=== PATIENT | female | born 1935 | race Caucasian/White ===

== ENCOUNTER 2018-01-28 12:15 | Inpatient (IN) | payer OTHER, MEDICAID ==
[2018-01-28 12:43] LABS: ADD MAN DIFF? NO
[2018-01-28] MEDS: ONDANSETRON 4 MG INJ IV (12:46)
[2018-01-28] MEDS: BELLADONNA/PHENOBARBITAL TAB PO (12:46)
[2018-01-28] MEDS: KETOROLAC 15 MG INJ IV (12:47)
[2018-01-28] MEDS: LIDOCAINE/MYLANTA 40 ML BTL PO (12:47)
[2018-01-28] MEDS: SOD CHLORIDE 0.9% 1,000 ML IV (12:48)
[2018-01-28 12:54] LABS: WHITE BLOOD COUNT 10.4 10^3/ul (4.8-10.8)
[2018-01-28 12:54] LABS: ABNORMAL IP MESSAGE 1; BASOPHILS % 0.3 % (0.0-2.0); EOSINOPHILS % 0.4 % (0.0-7.0); HEMATOCRIT 42.6 % (37.0-47.0); HEMOGLOBIN 14.8 g/dl (12.0-16.0); LYMPHOCYTES # 0.3 10^3/ul (0.8-2.9); LYMPHOCYTES % 3.2 % (15.0-51.0); MEAN CORPUSCULAR HEMOGLOBIN 31.5 pg (29.0-33.0); MEAN CORPUSCULAR HGB CONC 34.7 g/dl (32.0-37.0); MEAN CORPUSCULAR VOLUME 90.6 fl (82.0-101.0); MEAN PLATELET VOLUME 11.1 fl (7.4-10.4); MONOCYTE # 0.6 10^3/ul (0.3-0.9); MONOCYTES % 5.5 % (0.0-11.0); NEUTROPHIL # 9.4 10^3/ul (1.6-7.5); NEUTROPHILS % 90.4 % (39.0-77.0); PLATELET COUNT 216 10^3/UL (140-415); RED CELL DISTRIBUTION WIDTH 12.3 % (11.5-14.5)
[2018-01-28 12:55] LABS: POSITIVE DIFF @See below
[2018-01-28 13:13] LABS: ALANINE AMINOTRANSFERASE 40 IU/L (13-69); ALBUMIN/GLOBULIN RATIO 1.51; ALKALINE PHOSPHATASE 74 IU/L (42-121); ANION GAP 25 (8-16); ASPARTATE AMINO TRANSFERASE 38 IU/L (15-46); BILIRUBIN,INDIRECT 0.9 mg/dl (0-1.1); BILIRUBIN,TOTAL 0.9 mg/dl (0.2-1.3); BLOOD UREA NITROGEN 32 mg/dl (7-20); CALCIUM 10.1 mg/dl (8.4-10.2); CARBON DIOXIDE 22 mmol/L (21-31); CHLORIDE 93 mmol/L (97-110); CREATININE 2.18 mg/dl (0.44-1.00); GLUCOSE 259 mg/dl (70-220); LIPASE 103 U/L (23-300); POTASSIUM 4.3 mmol/L (3.5-5.1); SODIUM 136 mmol/L (135-144); TOTAL PROTEIN 8.3 g/dl (6.1-8.1)
[2018-01-28 13:24] LABS: TROPONIN-I < 0.010 ng/ml (0.000-0.120)
[2018-01-28] MEDS ORDERED: LORAZEPAM 2 MG INJ IV (15:30)
[2018-01-28] MEDS ORDERED: hydrALAzine 20 MG INJ IV (15:30)
[2018-01-28] MEDS ORDERED: DOCUSATE SODIUM 100 MG CAP PO (15:30)
[2018-01-28] MEDS ORDERED: MAGNESIUM HYDROXIDE 30ML CUP PO (15:30)
[2018-01-28] MEDS ORDERED: NA PHOSPHATE/BIPHOS 133 ML ENEMA PR (15:30)
[2018-01-28] MEDS ORDERED: ALBUTEROL/IPRATROPIUM (NEB) 3 ML AMP HHN (15:30)
[2018-01-28] MEDS ORDERED: NITROGLYCERIN (SL) 0.4 MG TAB SL (15:30)
[2018-01-28] MEDS ORDERED: ACETAMINOPHEN 325 MG TAB PO (15:30)
[2018-01-28] MEDS ORDERED: NACL 0.9% 3 ML SYG IV (15:30)
[2018-01-28 15:46] LABS: INR 1.01; PROTIME 13.4 Sec (11.9-14.9)
[2018-01-28 15:47] LABS: PARTIAL THROMBOPLASTIN TIME 25.1 Sec (25.0-35.0)
[2018-01-28 16:06] LABS: FREE T4 (FREE THYROXINE) 1.36 ng/dl (0.85-1.93)
[2018-01-28 16:15] LABS: LACTIC ACID 1.2 mmol/L (0.5-2.0)
[2018-01-28] MEDS: PIPER-TAZO 3.375 GM IV (PMX) 100 ML IVPB (16:36)
[2018-01-28] MEDS ORDERED: GLUCOSE GEL 15 GRAM TUBE BUCCAL (17:00)
[2018-01-28] MEDS ORDERED: DEXTROSE 50% 50 ML SYRINGE IV ×2 (17:00)
[2018-01-28] MEDS ORDERED: GLUCAGON 1 MG INJ IM (17:00)
[2018-01-28] MEDS ORDERED: GLUCOSE GEL 15 GRAM TUBE PO ×2 (17:00)
[2018-01-28] MEDS: HYDROCODONE/APAP (5/325) TAB PO (19:27)
[2018-01-28] MEDS: INSULIN ASPART [NOVOLOG] 3 ML PEN SC (20:41)
[2018-01-28] MEDS: SOD CHLORIDE 0.45% 1,000 ML IV (20:41)
[2018-01-28] MEDS: HEPARIN 5,000 UNIT/0.5 ML VIAL SC (21:00)
[2018-01-29 00:18] LABS: ADD UMIC YES; UR ASCORBIC ACID NEGATIVE (NEGATIVE); UR BILIRUBIN (Dip) NEGATIVE (NEGATIVE); UR BLOOD (Dip) NEGATIVE (NEGATIVE); UR CLARITY SLIGHTLY CLOUDY (CLEAR); UR COLOR YELLOW (YELLOW); UR GLUCOSE (Dip) 3+ mg/dL (NEGATIVE); UR KETONES (Dip) NEGATIVE (NEGATIVE); UR LEUKOCYTE ESTERASE (Dip) 1+ Leu/ul (NEGATIVE); UR NITRITE (Dip) NEGATIVE (NEGATIVE); UR RBC 2 /HPF (0-5); UR SPECIFIC GRAVITY (Dip) 1.027 (1.003-1.030); UR SQUAMOUS EPITHELIAL CELL FEW /HPF (FEW); UR TOTAL PROTEIN (Dip) NEGATIVE (NEGATIVE); UR UROBILINOGEN (Dip) NEGATIVE (NEGATIVE); UR WBC 1 /HPF (0-5)
[2018-01-29] MEDS: INSULIN ASPART [NOVOLOG] 3 ML PEN SC ×6 (00:28→20:45)
[2018-01-29] MEDS: SOD CHLORIDE 0.45% 1,000 ML IV ×4 (01:30→20:52)
[2018-01-29] MEDS: ACCU-CHEK XX (02:00)
[2018-01-29 02:31] LABS: SODIUM,URINE RANDOM < 13 mmol/L (30-90)
[2018-01-29] MEDS: PANTOPRAZOLE 40 MG INJ IV (06:01)
[2018-01-29 06:02] LABS: HEMATOCRIT 33.9 % (37.0-47.0); HEMOGLOBIN 11.7 g/dl (12.0-16.0); MEAN CORPUSCULAR HEMOGLOBIN 31.7 pg (29.0-33.0); MEAN CORPUSCULAR HGB CONC 34.5 g/dl (32.0-37.0); MEAN CORPUSCULAR VOLUME 91.9 fl (82.0-101.0); MEAN PLATELET VOLUME 11.3 fl (7.4-10.4); PLATELET COUNT 177 10^3/UL (140-415); RED BLOOD COUNT 3.69 10^6/ul (4.20-5.40); RED CELL DISTRIBUTION WIDTH 12.8 % (11.5-14.5)
[2018-01-29 06:02] LABS: WHITE BLOOD COUNT 4.9 10^3/ul (4.8-10.8)
[2018-01-29 06:26] LABS: ANION GAP 14 (8-16); BLOOD UREA NITROGEN 35 mg/dl (7-20); CALCIUM 8.9 mg/dl (8.4-10.2); CARBON DIOXIDE 29 mmol/L (21-31); CHLORIDE 96 mmol/L (97-110); CREATININE 1.55 mg/dl (0.44-1.00); GLUCOSE 110 mg/dl (70-220); MAGNESIUM 2.1 mg/dl (1.7-2.5); PHOSPHORUS 4.2 mg/dl (2.5-4.9); POTASSIUM 4.1 mmol/L (3.5-5.1); SODIUM 135 mmol/L (135-144)
[2018-01-29 06:28] LABS: CHOL/HDL RATIO 1.9 RATIO; HDL CHOLESTEROL 47 mg/dl (33-92); LDL CHOLESTEROL,CALCULATED 2 mg/dl; TRIGLYCERIDES 204 mg/dl (0-149)
[2018-01-29 06:28] LABS: CHOLESTEROL 90 mg/dl (100-200)
[2018-01-29 06:40] LABS: ADD MAN DIFF? YES; POSITIVE DIFF @See below
[2018-01-29 07:53] LABS: HEMOGLOBIN A1C 8.2 % (0-5.9)
[2018-01-29] MEDS: IOHEXOL 300MG/ML 150 ML BTL (08:13)
[2018-01-29 09:03] LABS: BAND NEUTROPHILS #M 1.7 10^3/ul (0.0-0.6); BAND NEUTROPHILS % (M) 35 % (0-4); EOSINOPHILS % (M) 2 % (0-7); GIANT THROMBO% (M) 1 % (0-0); LYMPHOCYTES #M 0.9 10^3/ul (0.8-2.9); LYMPHOCYTES % (M) 20 % (15-51); MONOCYTE #M 0.2 10^3/ul (0.3-0.9); MONOCYTES % (M) 6 % (0-11); PLATELET ESTIMATE NORMAL; PROMYELOCYTES % (M) 1 % (0-0); SEG NEUT #M 1.8 10^3/ul (1.6-7.5); SEGMENTED NEUTROPHILS (M) % 36 % (39-77); SMUDGE%M 16 % (0-0); SPHEROCYTES 1+ (0-0)
[2018-01-29] MEDS: morphine 2 MG INJ IV (10:52)
[2018-01-29] MEDS: HEPARIN 5,000 UNIT/0.5 ML VIAL SC ×2 (10:53→20:46)
[2018-01-29] MEDS: ONDANSETRON 4 MG INJ IV (23:55)
[2018-01-30] MEDS: INSULIN ASPART [NOVOLOG] 3 ML PEN SC ×6 (01:09→21:00)
[2018-01-30] MEDS: ACCU-CHEK XX (02:00)
[2018-01-30 05:57] LABS: ADD MAN DIFF? NO
[2018-01-30 06:05] LABS: ABNORMAL IP MESSAGE 1; BASOPHILS % 0.4 % (0.0-2.0); HEMATOCRIT 34.4 % (37.0-47.0); HEMOGLOBIN 11.8 g/dl (12.0-16.0); LYMPHOCYTES # 0.4 10^3/ul (0.8-2.9); LYMPHOCYTES % 7.4 % (15.0-51.0); MEAN CORPUSCULAR HEMOGLOBIN 32.1 pg (29.0-33.0); MEAN CORPUSCULAR HGB CONC 34.3 g/dl (32.0-37.0); MEAN CORPUSCULAR VOLUME 93.5 fl (82.0-101.0); MEAN PLATELET VOLUME 11.4 fl (7.4-10.4); MONOCYTE # 0.5 10^3/ul (0.3-0.9); MONOCYTES % 9.4 % (0.0-11.0); NEUTROPHIL # 4.7 10^3/ul (1.6-7.5); NEUTROPHILS % 82.6 % (39.0-77.0); PLATELET COUNT 180 10^3/UL (140-415); RED BLOOD COUNT 3.68 10^6/ul (4.20-5.40); RED CELL DISTRIBUTION WIDTH 12.5 % (11.5-14.5)
[2018-01-30 06:05] LABS: WHITE BLOOD COUNT 5.7 10^3/ul (4.8-10.8)
[2018-01-30 06:09] LABS: POSITIVE DIFF @See below
[2018-01-30 06:29] LABS: ANION GAP 20 (8-16); BLOOD UREA NITROGEN 35 mg/dl (7-20); CALCIUM 9.2 mg/dl (8.4-10.2); CARBON DIOXIDE 23 mmol/L (21-31); CHLORIDE 96 mmol/L (97-110); CREATININE 1.28 mg/dl (0.44-1.00); GLUCOSE 162 mg/dl (70-220); POTASSIUM 3.9 mmol/L (3.5-5.1); SODIUM 135 mmol/L (135-144)
[2018-01-30] MEDS ORDERED: CEFAZOLIN 1 GM INJ (07:00)
[2018-01-30] MEDS: HEPARIN 5,000 UNIT/0.5 ML VIAL SC ×2 (08:38→21:00)
[2018-01-30] MEDS: SOD CHLORIDE 0.45% 1,000 ML IV ×3 (09:39→22:18)
[2018-01-30] MEDS ORDERED: SUCCINYLCHOLINE CHLORIDE 100 MG/5 ML SYG IV (19:36)
[2018-01-30] MEDS ORDERED: PROPOFOL 20 ML (19:36)
[2018-01-30] MEDS ORDERED: ONDANSETRON 4 MG INJ (19:36)
[2018-01-30] MEDS ORDERED: ROCURONIUM 50 MG INJ (19:36)
[2018-01-30] MEDS ORDERED: METOCLOPRAMIDE 10 MG INJ (19:36)
[2018-01-30] MEDS ORDERED: ROPIVACAINE 0.5 % 30 ML VIAL (20:21)
[2018-01-30] MEDS: BUPIVACAINE 0.25% (MPF) 30 ML INJ (20:22)
[2018-01-30] MEDS ORDERED: HYDROmorphONE 1 MG/5 ML IV SYRINGE IV ×3 (20:30)
[2018-01-30] MEDS ORDERED: morphine 2 MG INJ IV (20:30)
[2018-01-30] MEDS ORDERED: ALBUTEROL 0.083% (NEB) 2.5 MG/3 ML AMP HHN (20:30)
[2018-01-30] MEDS ORDERED: ONDANSETRON 4 MG INJ IV ×2 (20:30)
[2018-01-30] MEDS ORDERED: EPHEDrine SULFATE 50 MG/5 ML SYG IV (20:30)
[2018-01-30] MEDS ORDERED: DIPHENHYDRAMINE 50 MG INJ IV (20:30)
[2018-01-30] MEDS ORDERED: MEPERIDINE 25 MG INJ IV (20:30)
[2018-01-30] MEDS ORDERED: SUGAMMADEX SODIUM 200 MG/2 ML VIAL IV (20:33)
[2018-01-31] MEDS: INSULIN ASPART [NOVOLOG] 3 ML PEN SC ×3 (01:00→08:25)
[2018-01-31] MEDS: ACCU-CHEK XX (02:00)
[2018-01-31 05:39] LABS: ADD MAN DIFF? NO
[2018-01-31 05:51] LABS: WHITE BLOOD COUNT 5.2 10^3/ul (4.8-10.8)
[2018-01-31 05:51] LABS: BASOPHILS % 0.4 % (0.0-2.0); EOSINOPHILS # 0.1 10^3/ul (0.0-0.5); EOSINOPHILS % 1.5 % (0.0-7.0); HEMATOCRIT 29.5 % (37.0-47.0); HEMOGLOBIN 9.9 g/dl (12.0-16.0); LYMPHOCYTES # 0.7 10^3/ul (0.8-2.9); LYMPHOCYTES % 13.2 % (15.0-51.0); MEAN CORPUSCULAR HEMOGLOBIN 31.3 pg (29.0-33.0); MEAN CORPUSCULAR HGB CONC 33.6 g/dl (32.0-37.0); MEAN CORPUSCULAR VOLUME 93.4 fl (82.0-101.0); MEAN PLATELET VOLUME 11.2 fl (7.4-10.4); MONOCYTE # 0.5 10^3/ul (0.3-0.9); MONOCYTES % 10.1 % (0.0-11.0); NEUTROPHIL # 3.9 10^3/ul (1.6-7.5); NEUTROPHILS % 74.2 % (39.0-77.0); PLATELET COUNT 161 10^3/UL (140-415); RED BLOOD COUNT 3.16 10^6/ul (4.20-5.40); RED CELL DISTRIBUTION WIDTH 12.4 % (11.5-14.5)
[2018-01-31 06:13] LABS: ANION GAP 11 (8-16); BLOOD UREA NITROGEN 21 mg/dl (7-20); CALCIUM 7.9 mg/dl (8.4-10.2); CARBON DIOXIDE 25 mmol/L (21-31); CHLORIDE 102 mmol/L (97-110); CREATININE 0.82 mg/dl (0.44-1.00); GLUCOSE 85 mg/dl (70-220); POTASSIUM 3.3 mmol/L (3.5-5.1); SODIUM 135 mmol/L (135-144)
[2018-01-31 06:27] LABS: OCCULT BLOOD STOOL NEGATIVE (NEGATIVE)
[2018-01-31] MEDS: HEPARIN 5,000 UNIT/0.5 ML VIAL SC (08:25)
[2018-01-31] MEDS: POTASSIUM CHLORIDE 20 MEQ POWDER FOR ORAL SOLN PO (11:11)
[2018-01-31] MEDS ORDERED: METOCLOPRAMIDE 10 MG INJ IV (12:00)
== END 2018-01-31 12:08 | disposition home or self-care (01) | DRG 336 ==
LOC: E/R 12:15 → PP2 14:56
PROC: 0DN84ZZ Release Small Intestine, Percutaneous Endoscopic Approach (ICD-10-PCS; principal; 2018-01-30 19:00)
DX: K56.50 Intestinal adhesions [bands], unspecified as to partial versus complete obstruction (principal); N17.9 Acute kidney failure, unspecified; E11.9 Type 2 diabetes mellitus without complications; I10 Essential (primary) hypertension; Z90.49 Acquired absence of other specified parts of digestive tract; E78.5 Hyperlipidemia, unspecified; E86.0 Dehydration
CPT/HCPCS: 71045; 74018; 74176; 74250; 76775; 80048; 80053; 80061; 81001; 82270; 82962; 83036; 83605; 83690; 83735; 84100; 84300; 84439; 84443; 84484; 85025; 85610; 85730; 87086; 89190; 93005; 96374; 96375; 97116; 97161; 97165; 97535; 99285-25

== ENCOUNTER 2018-02-01 18:34 | Inpatient (IN) | payer OTHER ==
[2018-02-01 19:25] LABS: ADD MAN DIFF? NO
[2018-02-01 19:29] LABS: ABNORMAL IP MESSAGE 1; BASOPHILS % 0.6 % (0.0-2.0); EOSINOPHILS # 0.2 10^3/ul (0.0-0.5); EOSINOPHILS % 3.3 % (0.0-7.0); HEMATOCRIT 38.2 % (37.0-47.0); HEMOGLOBIN 12.9 g/dl (12.0-16.0); LYMPHOCYTES # 0.5 10^3/ul (0.8-2.9); LYMPHOCYTES % 6.7 % (15.0-51.0); MEAN CORPUSCULAR HEMOGLOBIN 31.6 pg (29.0-33.0); MEAN CORPUSCULAR HGB CONC 33.8 g/dl (32.0-37.0); MEAN CORPUSCULAR VOLUME 93.6 fl (82.0-101.0); MEAN PLATELET VOLUME 10.8 fl (7.4-10.4); MONOCYTE # 0.6 10^3/ul (0.3-0.9); MONOCYTES % 9.5 % (0.0-11.0); NEUTROPHIL # 5.3 10^3/ul (1.6-7.5); NEUTROPHILS % 78.6 % (39.0-77.0); PLATELET COUNT 254 10^3/UL (140-415); RED BLOOD COUNT 4.08 10^6/ul (4.20-5.40); RED CELL DISTRIBUTION WIDTH 12.7 % (11.5-14.5)
[2018-02-01 19:29] LABS: WHITE BLOOD COUNT 6.7 10^3/ul (4.8-10.8)
[2018-02-01 19:31] LABS: POSITIVE DIFF @See below
[2018-02-01 19:46] LABS: ALANINE AMINOTRANSFERASE 26 IU/L (13-69); ALBUMIN 4.5 g/dl (3.3-4.9); ALBUMIN/GLOBULIN RATIO 1.36; ALKALINE PHOSPHATASE 83 IU/L (42-121); ANION GAP 15 (8-16); ASPARTATE AMINO TRANSFERASE 37 IU/L (15-46); BILIRUBIN,INDIRECT 0.5 mg/dl (0-1.1); BILIRUBIN,TOTAL 0.5 mg/dl (0.2-1.3); BLOOD UREA NITROGEN 16 mg/dl (7-20); CALCIUM 9.6 mg/dl (8.4-10.2); CARBON DIOXIDE 25 mmol/L (21-31); CHLORIDE 98 mmol/L (97-110); CREATININE 1.21 mg/dl (0.44-1.00); GLUCOSE 199 mg/dl (70-220); LIPASE 68 U/L (23-300); POTASSIUM 4.1 mmol/L (3.5-5.1); SODIUM 134 mmol/L (135-144); TOTAL PROTEIN 7.8 g/dl (6.1-8.1)
[2018-02-01 19:47] LABS: INR 0.92; PROTIME 12.4 Sec (11.9-14.9)
[2018-02-01 19:57] LABS: TROPONIN-I < 0.010 ng/ml (0.000-0.120)
[2018-02-01 20:28] LABS: ADD UMIC NO; UR ASCORBIC ACID NEGATIVE (NEGATIVE); UR BILIRUBIN (Dip) NEGATIVE (NEGATIVE); UR BLOOD (Dip) NEGATIVE (NEGATIVE); UR CLARITY CLEAR (CLEAR); UR COLOR YELLOW (YELLOW); UR GLUCOSE (Dip) 3+ mg/dL (NEGATIVE); UR KETONES (Dip) NEGATIVE (NEGATIVE); UR LEUKOCYTE ESTERASE (Dip) NEGATIVE Leu/ul (NEGATIVE); UR NITRITE (Dip) NEGATIVE (NEGATIVE); UR SPECIFIC GRAVITY (Dip) 1.011 (1.003-1.030); UR TOTAL PROTEIN (Dip) NEGATIVE (NEGATIVE); UR UROBILINOGEN (Dip) NEGATIVE (NEGATIVE)
[2018-02-01] MEDS: SOD CHLORIDE 0.9% 500 ML IV (20:33)
[2018-02-01] MEDS: ONDANSETRON 4 MG INJ IV (20:33)
[2018-02-01 22:31] LABS: OCCULT BLOOD STOOL NEGATIVE (NEGATIVE)
[2018-02-01] MEDS: DEXTROSE 5%-0.45% NACL 1,000 ML IV (23:09)
[2018-02-02] MEDS ORDERED: ALBUTEROL/IPRATROPIUM (NEB) 3 ML AMP HHN (03:00)
[2018-02-02] MEDS ORDERED: morphine 2 MG INJ IV (03:00)
[2018-02-02] MEDS ORDERED: GLUCOSE GEL 15 GRAM TUBE PO ×2 (03:00)
[2018-02-02] MEDS ORDERED: GLUCOSE GEL 15 GRAM TUBE BUCCAL (03:00)
[2018-02-02] MEDS ORDERED: NACL 0.9% 3 ML SYG IV (03:00)
[2018-02-02] MEDS ORDERED: DEXTROSE 50% 50 ML SYRINGE IV ×2 (03:00)
[2018-02-02] MEDS ORDERED: GLUCAGON 1 MG INJ IM (03:00)
[2018-02-02] MEDS ORDERED: ONDANSETRON 4 MG INJ IV (03:00)
[2018-02-02] MEDS: INSULIN ASPART [NOVOLOG] 3 ML PEN SC ×5 (05:00→20:26)
[2018-02-02] MEDS: DEXTROSE 5%-0.45% NACL 1,000 ML IV ×3 (05:25→20:10)
[2018-02-02 05:29] LABS: WHITE BLOOD COUNT 4.3 10^3/ul (4.8-10.8)
[2018-02-02 05:29] LABS: HEMOGLOBIN 10.9 g/dl (12.0-16.0); MEAN CORPUSCULAR HEMOGLOBIN 32.1 pg (29.0-33.0); MEAN CORPUSCULAR HGB CONC 34.1 g/dl (32.0-37.0); MEAN CORPUSCULAR VOLUME 94.1 fl (82.0-101.0); MEAN PLATELET VOLUME 10.6 fl (7.4-10.4); PLATELET COUNT 203 10^3/UL (140-415)
[2018-02-02 05:46] LABS: ALANINE AMINOTRANSFERASE 27 IU/L (13-69); ALBUMIN 3.4 g/dl (3.3-4.9); ALBUMIN/GLOBULIN RATIO 1.25; ALKALINE PHOSPHATASE 49 IU/L (42-121); ANION GAP 10 (8-16); ASPARTATE AMINO TRANSFERASE 25 IU/L (15-46); BILIRUBIN,INDIRECT 0.4 mg/dl (0-1.1); BILIRUBIN,TOTAL 0.4 mg/dl (0.2-1.3); BLOOD UREA NITROGEN 16 mg/dl (7-20); CALCIUM 8.6 mg/dl (8.4-10.2); CARBON DIOXIDE 28 mmol/L (21-31); CHLORIDE 105 mmol/L (97-110); CREATININE 0.84 mg/dl (0.44-1.00); GLUCOSE 92 mg/dl (70-220); POTASSIUM 4.2 mmol/L (3.5-5.1); SODIUM 139 mmol/L (135-144); TOTAL PROTEIN 6.1 g/dl (6.1-8.1)
[2018-02-02 05:58] LABS: ADD MAN DIFF? YES; POSITIVE DIFF @See below
[2018-02-02] MEDS: FAMOTIDINE 20 MG INJ IV (08:27)
[2018-02-02 10:07] LABS: ANISOCYTOSIS 1+ (0-0); BAND NEUTROPHILS #M 1.2 10^3/ul (0.0-0.6); BAND NEUTROPHILS % (M) 28 % (0-4); EOSINOPHILS % (M) 7 % (0-7); LYMPHOCYTES #M 0.6 10^3/ul (0.8-2.9); LYMPHOCYTES % (M) 16 % (15-51); METAMYELOCYTES %M 1 % (0-0); MONOCYTE #M 0.4 10^3/ul (0.3-0.9); MONOCYTES % (M) 11 % (0-11); MYELOCYTES % (M) 1 % (0-0); PLATELET ESTIMATE NORMAL; POLYCHROMASIA 1+ (0-0); SEG NEUT #M 1.6 10^3/ul (1.6-7.5); SEGMENTED NEUTROPHILS (M) % 36 % (39-77); SMUDGE%M 4 % (0-0)
[2018-02-02] MEDS: DIATR MEGLU/DIATRIZOATE SODIUM 120 ML BTL (10:42)
[2018-02-02] MEDS: BARIUM SULFATE 135 ML (E-Z HD) PO (10:42)
[2018-02-02] MEDS: INSULIN DETEMIR [LEVEMIR] (100 UNITS/ML) SYG SC (20:31)
[2018-02-03] MEDS: ACCU-CHEK XX ×2 (01:18)
[2018-02-03] MEDS: DEXTROSE 5%-0.45% NACL 1,000 ML IV ×2 (04:55→17:51)
[2018-02-03 05:27] LABS: ADD MAN DIFF? NO
[2018-02-03 05:30] LABS: WHITE BLOOD COUNT 4.3 10^3/ul (4.8-10.8)
[2018-02-03 05:30] LABS: BASOPHILS % 0.5 % (0.0-2.0); EOSINOPHILS # 0.1 10^3/ul (0.0-0.5); EOSINOPHILS % 2.8 % (0.0-7.0); HEMATOCRIT 31.6 % (37.0-47.0); HEMOGLOBIN 10.6 g/dl (12.0-16.0); LYMPHOCYTES # 0.6 10^3/ul (0.8-2.9); LYMPHOCYTES % 14.1 % (15.0-51.0); MEAN CORPUSCULAR HEMOGLOBIN 31.6 pg (29.0-33.0); MEAN CORPUSCULAR HGB CONC 33.5 g/dl (32.0-37.0); MEAN CORPUSCULAR VOLUME 94.3 fl (82.0-101.0); MEAN PLATELET VOLUME 10.4 fl (7.4-10.4); MONOCYTE # 0.6 10^3/ul (0.3-0.9); MONOCYTES % 12.9 % (0.0-11.0); NEUTROPHIL # 2.9 10^3/ul (1.6-7.5); NEUTROPHILS % 67.8 % (39.0-77.0); PLATELET COUNT 209 10^3/UL (140-415); RED BLOOD COUNT 3.35 10^6/ul (4.20-5.40); RED CELL DISTRIBUTION WIDTH 12.6 % (11.5-14.5)
[2018-02-03 05:52] LABS: ANION GAP 9 (8-16); BLOOD UREA NITROGEN 9 mg/dl (7-20); CALCIUM 8.4 mg/dl (8.4-10.2); CARBON DIOXIDE 27 mmol/L (21-31); CHLORIDE 108 mmol/L (97-110); CREATININE 0.69 mg/dl (0.44-1.00); GLUCOSE 101 mg/dl (70-220); MAGNESIUM 1.8 mg/dl (1.7-2.5); PHOSPHORUS 2.4 mg/dl (2.5-4.9); POTASSIUM 3.6 mmol/L (3.5-5.1); SODIUM 140 mmol/L (135-144)
[2018-02-03] MEDS: Insulin NOVOLOG SS MILD Algorithm (SS with meals and bedtime) SC ×4 (07:20→21:00)
[2018-02-03] MEDS ORDERED: INSULIN ASPART [NOVOLOG] 3 ML PEN SC (07:20)
[2018-02-03] MEDS: FAMOTIDINE 20 MG INJ IV (08:16)
[2018-02-03] MEDS: INSULIN DETEMIR [LEVEMIR] (100 UNITS/ML) SYG SC (22:04)
[2018-02-04] MEDS: ACCU-CHEK XX (02:00)
[2018-02-04] MEDS: Insulin NOVOLOG SS MILD Algorithm (SS with meals and bedtime) SC ×2 (07:20→12:21)
[2018-02-04] MEDS: FAMOTIDINE 20 MG INJ IV (08:17)
== END 2018-02-04 16:35 | disposition home health service (06) | DRG 389 ==
LOC: MS1 23:12 → E/R 18:34
DX: K56.600 Partial intestinal obstruction, unspecified as to cause (principal); N17.9 Acute kidney failure, unspecified; I10 Essential (primary) hypertension; E11.9 Type 2 diabetes mellitus without complications; E86.0 Dehydration; Z79.4 Long term (current) use of insulin; Z90.49 Acquired absence of other specified parts of digestive tract
CPT/HCPCS: 74176; 74250; 80048; 80053; 81003; 82270; 82962; 83690; 83735; 84100; 84484; 85025; 85610; 87081; 96374; 97167; 99285-25

== ENCOUNTER 2018-09-07 14:41 | Inpatient (IN) | payer OTHER ==
[2018-09-07] MEDS: ONDANSETRON 4 MG INJ IV ×2 (15:34→16:42)
[2018-09-07] MEDS: SOD CHLORIDE 0.9% 500 ML IV (15:34)
[2018-09-07] MEDS: HYDROmorphONE 1 MG/ML SYG IV ×2 (15:35→16:42)
[2018-09-07 15:42] LABS: ADD MAN DIFF? NO
[2018-09-07 15:43] LABS: WHITE BLOOD COUNT 14.1 10^3/ul (4.8-10.8)
[2018-09-07 15:43] LABS: ABNORMAL IP MESSAGE 1; BASOPHILS % 0.3 % (0.0-2.0); EOSINOPHILS % 0.1 % (0.0-7.0); HEMATOCRIT 38.5 % (37.0-47.0); HEMOGLOBIN 13.1 g/dl (12.0-16.0); LYMPHOCYTES # 0.6 10^3/ul (0.8-2.9); MEAN CORPUSCULAR VOLUME 91.2 fl (82.0-101.0); MEAN PLATELET VOLUME 10.4 fl (7.4-10.4); MONOCYTE # 0.6 10^3/ul (0.3-0.9); MONOCYTES % 4.2 % (0.0-11.0); NEUTROPHIL # 12.8 10^3/ul (1.6-7.5); NEUTROPHILS % 90.8 % (39.0-77.0); PLATELET COUNT 212 10^3/UL (140-415); RED BLOOD COUNT 4.22 10^6/ul (4.20-5.40); RED CELL DISTRIBUTION WIDTH 11.9 % (11.5-14.5)
[2018-09-07 16:00] LABS: POSITIVE DIFF @See below
[2018-09-07 16:07] LABS: ANION GAP 13 (5-13); BLOOD UREA NITROGEN 35 mg/dl (7-20); CARBON DIOXIDE 27 mmol/L (21-31); CHLORIDE 96 mmol/L (97-110); CREATININE 1.03 mg/dl (0.44-1.00); GLUCOSE 337 mg/dl (70-220); POTASSIUM 3.8 mmol/L (3.5-5.1); SODIUM 136 mmol/L (135-144)
[2018-09-07 16:19] LABS: TROPONIN-I < 0.012 ng/ml (0.000-0.120)
[2018-09-07] MEDS ORDERED: ACETAMINOPHEN 325 MG TAB PO ×2 (18:00→18:30)
[2018-09-07] MEDS ORDERED: ONDANSETRON 4 MG INJ IV (18:00)
[2018-09-07] MEDS ORDERED: NACL 0.9% 3 ML SYG IV (18:30)
[2018-09-07] MEDS ORDERED: DEXTROSE 50% 50 ML SYRINGE IV ×2 (19:00)
[2018-09-07] MEDS ORDERED: GLUCOSE GEL 15 GRAM TUBE BUCCAL (19:00)
[2018-09-07] MEDS ORDERED: GLUCAGON 1 MG INJ IM (19:00)
[2018-09-07] MEDS ORDERED: GLUCOSE GEL 15 GRAM TUBE PO ×2 (19:00)
[2018-09-07] MEDS: HYDROCODONE/APAP (5/325) TAB PO (19:22)
[2018-09-07] MEDS: SOD CHLORIDE 0.9% 1,000 ML IV (19:22)
[2018-09-07] MEDS: INSULIN ASPART [NOVOLOG] 3 ML PEN SC (21:00)
[2018-09-07] MEDS: morphine 2 MG INJ IV (23:06)
[2018-09-08] MEDS: ACCU-CHEK XX ×3 (02:00→20:25)
[2018-09-08] MEDS: HYDROCODONE/APAP (5/325) TAB PO ×3 (03:18→23:48)
[2018-09-08] MEDS: QUETIAPINE 25 MG TAB PO (03:18)
[2018-09-08 05:54] LABS: ADD MAN DIFF? NO
[2018-09-08 06:02] LABS: BASOPHILS % 0.2 % (0.0-2.0); EOSINOPHILS % 0.1 % (0.0-7.0); HEMOGLOBIN 11.6 g/dl (12.0-16.0); LYMPHOCYTES # 0.9 10^3/ul (0.8-2.9); LYMPHOCYTES % 9.3 % (15.0-51.0); MEAN CORPUSCULAR HGB CONC 34.1 g/dl (32.0-37.0); MEAN CORPUSCULAR VOLUME 90.9 fl (82.0-101.0); MEAN PLATELET VOLUME 10.7 fl (7.4-10.4); MONOCYTE # 0.7 10^3/ul (0.3-0.9); NEUTROPHIL # 7.5 10^3/ul (1.6-7.5); NEUTROPHILS % 82.1 % (39.0-77.0); PLATELET COUNT 190 10^3/UL (140-415); RED BLOOD COUNT 3.74 10^6/ul (4.20-5.40); RED CELL DISTRIBUTION WIDTH 12.1 % (11.5-14.5)
[2018-09-08 06:02] LABS: WHITE BLOOD COUNT 9.1 10^3/ul (4.8-10.8)
[2018-09-08 06:45] LABS: ALANINE AMINOTRANSFERASE 19 IU/L (13-69); ALBUMIN 3.9 g/dl (3.3-4.9); ALBUMIN/GLOBULIN RATIO 1.34; ALKALINE PHOSPHATASE 74 IU/L (42-121); ANION GAP 15 (5-13); ASPARTATE AMINO TRANSFERASE 21 IU/L (15-46); BILIRUBIN,INDIRECT 0.5 mg/dl (0-1.1); BILIRUBIN,TOTAL 0.5 mg/dl (0.2-1.3); BLOOD UREA NITROGEN 24 mg/dl (7-20); CALCIUM 8.8 mg/dl (8.4-10.2); CARBON DIOXIDE 25 mmol/L (21-31); CHLORIDE 97 mmol/L (97-110); CHOLESTEROL 125 mg/dl (100-200); CREATININE 0.75 mg/dl (0.44-1.00); GLUCOSE 171 mg/dl (70-220); HDL CHOLESTEROL 48 mg/dl (33-92); MAGNESIUM 1.9 mg/dl (1.7-2.5); PHOSPHORUS 4.2 mg/dl (2.5-4.9); POTASSIUM 3.2 mmol/L (3.5-5.1); SODIUM 137 mmol/L (135-144); TOTAL PROTEIN 6.8 g/dl (6.1-8.1); TRIGLYCERIDES 157 mg/dl (0-149)
[2018-09-08 06:46] LABS: CHOL/HDL RATIO 2.6 RATIO; LDL CHOLESTEROL,CALCULATED 46 mg/dl
[2018-09-08 07:11] LABS: THYROID STIMULATING HORMONE 0.884 MIU/L (0.465-4.680)
[2018-09-08] MEDS: PANTOPRAZOLE 40 MG INJ IV (07:44)
[2018-09-08 08:08] LABS: HEMOGLOBIN A1C 9.6 % (0-5.9)
[2018-09-08] MEDS: HYDROCHLOROTHIAZIDE 25 MG TAB PO (08:33)
[2018-09-08] MEDS: LOSARTAN 50 MG TAB PO (08:34)
[2018-09-08] MEDS: INSULIN ASPART [NOVOLOG] 3 ML PEN SC ×4 (08:37→20:57)
[2018-09-08] MEDS: POTASSIUM CHLORIDE 50 ML IVPB ×3 (13:54→16:38)
[2018-09-08] MEDS: metFORMIN 500 MG TAB PO (17:23)
[2018-09-08] MEDS: morphine LIQ (10 MG/5 ML) CUP PO (20:26)
[2018-09-09] MEDS: ACCU-CHEK XX ×3 (02:10→11:10)
[2018-09-09] MEDS: PANTOPRAZOLE (EC) 40 MG TAB PO (06:23)
[2018-09-09] MEDS ORDERED: NON-FORMULARY/PATIENT OWN MED (Dapagliflozin Propanediol (Farxiga) 5 MG) PO (09:00)
[2018-09-09] MEDS: metFORMIN 500 MG TAB PO (09:01)
[2018-09-09] MEDS: LINAGLIPTIN 5 MG TABLET PO (09:01)
[2018-09-09] MEDS: ENOXAPARIN 40 MG/0.4 ML SYG SC (09:03)
[2018-09-09] MEDS: INSULIN ASPART [NOVOLOG] 3 ML PEN SC ×2 (09:04→13:07)
[2018-09-09] MEDS: HYDROCHLOROTHIAZIDE 25 MG TAB PO (09:05)
[2018-09-09] MEDS: LOSARTAN 50 MG TAB PO (09:05)
[2018-09-09] MEDS: HYDROCODONE/APAP (5/325) TAB PO ×3 (09:52→18:08)
[2018-09-09] MEDS: INFLUENZA VIRUS VACCINE 0.5 ML (DISPENSING) IM* (10:00)
== END 2018-09-09 18:20 | disposition home health service (06) | DRG 552 ==
LOC: E/R 14:41 → MS1 09-08 22:48 → TEL 17:49
DX: S32.011A Stable burst fracture of first lumbar vertebra, initial encounter for closed fracture (principal); I10 Essential (primary) hypertension; E11.8 Type 2 diabetes mellitus with unspecified complications; W19.XXXA Unspecified fall, initial encounter; Y93.E1 Activity, personal bathing and showering; Y92.002 Bathroom of unspecified non-institutional (private) residence as the place of occurrence of the external cause
CPT/HCPCS: 36415; 70450; 71045; 72131; 72148; 80048; 80053; 80061; 82962; 83036; 83735; 84100; 84443; 84484; 85025; 90686; 93005; 93880; 96374; 96375; 96376; 97116; 97162; 97530; 99285-25

== ENCOUNTER 2018-09-14 11:08 | Inpatient (IN) | payer OTHER ==
[2018-09-14] MEDS: ONDANSETRON 4 MG INJ IV (11:36)
[2018-09-14] MEDS: morphine 4 MG/ML VIAL IV ×2 (11:37→13:57)
[2018-09-14] MEDS: SOD CHLORIDE 0.9% 500 ML IV (11:38)
[2018-09-14 11:39] LABS: ADD MAN DIFF? NO
[2018-09-14 11:41] LABS: WHITE BLOOD COUNT 12.3 10^3/ul (4.8-10.8)
[2018-09-14 11:41] LABS: ABNORMAL IP MESSAGE 1; BASOPHILS % 0.2 % (0.0-2.0); EOSINOPHILS % 0.1 % (0.0-7.0); HEMOGLOBIN 13.3 g/dl (12.0-16.0); LYMPHOCYTES # 0.4 10^3/ul (0.8-2.9); LYMPHOCYTES % 2.9 % (15.0-51.0); MEAN CORPUSCULAR HEMOGLOBIN 30.7 pg (29.0-33.0); MEAN CORPUSCULAR HGB CONC 34.1 g/dl (32.0-37.0); MEAN CORPUSCULAR VOLUME 90.1 fl (82.0-101.0); MEAN PLATELET VOLUME 10.2 fl (7.4-10.4); MONOCYTE # 0.4 10^3/ul (0.3-0.9); MONOCYTES % 3.3 % (0.0-11.0); NEUTROPHIL # 11.4 10^3/ul (1.6-7.5); NEUTROPHILS % 93.2 % (39.0-77.0); PLATELET COUNT 281 10^3/UL (140-415); RED BLOOD COUNT 4.33 10^6/ul (4.20-5.40); RED CELL DISTRIBUTION WIDTH 12.7 % (11.5-14.5)
[2018-09-14 11:44] LABS: POSITIVE DIFF @See below
[2018-09-14 12:02] LABS: ANION GAP 20 (5-13); BLOOD UREA NITROGEN 24 mg/dl (7-20); CALCIUM 9.6 mg/dl (8.4-10.2); CARBON DIOXIDE 23 mmol/L (21-31); CHLORIDE 89 mmol/L (97-110); GLUCOSE 298 mg/dl (70-220); POTASSIUM 3.4 mmol/L (3.5-5.1); SODIUM 132 mmol/L (135-144)
[2018-09-14] MEDS ORDERED: ONDANSETRON 4 MG INJ IV ×2 (13:30→18:00)
[2018-09-14] MEDS: ACETAMINOPHEN 325 MG TAB PO ×2 (15:08→20:49)
[2018-09-14] MEDS ORDERED: DEXTROSE 50% 50 ML SYRINGE IV (18:00)
[2018-09-14] MEDS ORDERED: GLUCAGON 1 MG INJ IM (18:00)
[2018-09-14] MEDS ORDERED: GLUCOSE GEL 15 GRAM TUBE PO ×2 (18:00)
[2018-09-14] MEDS ORDERED: GLUCOSE GEL 15 GRAM TUBE BUCCAL (18:00)
[2018-09-14] MEDS: INSULIN ASPART [NOVOLOG] 3 ML PEN SC ×2 (18:30→20:50)
[2018-09-14] MEDS: POTASSIUM CHLORIDE 30 MEQ in SOD CHLORIDE 0.9% 1,000 ML IV (18:45)
[2018-09-14] MEDS: CEFTRIAXONE 1 GM/50 ML (PMX) 50 ML IVPB (18:47)
[2018-09-14] MEDS: QUETIAPINE 25 MG TAB PO (20:44)
[2018-09-14] MEDS: hydrALAzine 20 MG INJ IV (20:45)
[2018-09-14] MEDS: INSULIN GLARGINE [LANTus] (100 UNITS/ML) SYG SC (20:46)
[2018-09-14] MEDS: ZOLPIDEM 5 MG TAB PO (22:36)
[2018-09-15] MEDS: ACCU-CHEK XX (02:00)
[2018-09-15] MEDS: HALOPERIDOL 5 MG INJ IM (02:56)
[2018-09-15 05:56] LABS: ADD MAN DIFF? NO
[2018-09-15 06:05] LABS: WHITE BLOOD COUNT 7.3 10^3/ul (4.8-10.8)
[2018-09-15 06:05] LABS: BASOPHILS % 0.4 % (0.0-2.0); EOSINOPHILS # 0.1 10^3/ul (0.0-0.5); EOSINOPHILS % 1.6 % (0.0-7.0); HEMATOCRIT 33.6 % (37.0-47.0); HEMOGLOBIN 11.5 g/dl (12.0-16.0); LYMPHOCYTES # 0.7 10^3/ul (0.8-2.9); LYMPHOCYTES % 9.5 % (15.0-51.0); MEAN CORPUSCULAR HEMOGLOBIN 31.2 pg (29.0-33.0); MEAN CORPUSCULAR HGB CONC 34.2 g/dl (32.0-37.0); MEAN CORPUSCULAR VOLUME 91.1 fl (82.0-101.0); MONOCYTE # 0.5 10^3/ul (0.3-0.9); MONOCYTES % 6.2 % (0.0-11.0); NEUTROPHILS % 81.8 % (39.0-77.0); PLATELET COUNT 241 10^3/UL (140-415); RED BLOOD COUNT 3.69 10^6/ul (4.20-5.40); RED CELL DISTRIBUTION WIDTH 12.6 % (11.5-14.5)
[2018-09-15] MEDS: morphine 2 MG INJ IV (06:15)
[2018-09-15 06:46] LABS: ANION GAP 13 (5-13); BLOOD UREA NITROGEN 16 mg/dl (7-20); CALCIUM 8.8 mg/dl (8.4-10.2); CARBON DIOXIDE 22 mmol/L (21-31); CHLORIDE 101 mmol/L (97-110); CREATININE 0.61 mg/dl (0.44-1.00); GLUCOSE 97 mg/dl (70-220); PHOSPHORUS 1.9 mg/dl (2.5-4.9); POTASSIUM 3.2 mmol/L (3.5-5.1); SODIUM 136 mmol/L (135-144)
[2018-09-15] MEDS: INSULIN ASPART [NOVOLOG] 3 ML PEN SC ×7 (08:00→20:46)
[2018-09-15] MEDS: HEPARIN 5,000 UNIT/1 ML VIAL SC (08:58)
[2018-09-15] MEDS: QUETIAPINE 25 MG TAB PO ×3 (09:00→20:43)
[2018-09-15] MEDS: POTASSIUM CHLORIDE 30 MEQ in SOD CHLORIDE 0.9% 1,000 ML IV ×2 (11:25→22:00)
[2018-09-15] MEDS: POTASSIUM PHOSPHATE 15 MM in SOD CHLORIDE 0.9% 250 ML IVPB (12:36)
[2018-09-15] MEDS: CEFTRIAXONE 1 GM/50 ML (PMX) 50 ML IVPB (17:26)
[2018-09-15] MEDS: DEXTROSE 50% 50 ML SYRINGE IV (17:33)
[2018-09-15] MEDS: HYDROCODONE/APAP (5/325) TAB PO (20:43)
[2018-09-15] MEDS: INSULIN GLARGINE [LANTus] (100 UNITS/ML) SYG SC (21:03)
[2018-09-15] MEDS: LORAZEPAM 2 MG INJ IV (22:56)
[2018-09-16] MEDS: ACCU-CHEK XX (02:10)
[2018-09-16 06:09] LABS: ADD MAN DIFF? NO
[2018-09-16 06:15] LABS: BASOPHILS % 0.7 % (0.0-2.0); EOSINOPHILS # 0.3 10^3/ul (0.0-0.5); EOSINOPHILS % 6.3 % (0.0-7.0); HEMATOCRIT 31.7 % (37.0-47.0); HEMOGLOBIN 10.9 g/dl (12.0-16.0); LYMPHOCYTES # 0.8 10^3/ul (0.8-2.9); LYMPHOCYTES % 19.3 % (15.0-51.0); MEAN CORPUSCULAR HEMOGLOBIN 31.2 pg (29.0-33.0); MEAN CORPUSCULAR HGB CONC 34.4 g/dl (32.0-37.0); MEAN CORPUSCULAR VOLUME 90.8 fl (82.0-101.0); MEAN PLATELET VOLUME 10.2 fl (7.4-10.4); MONOCYTE # 0.5 10^3/ul (0.3-0.9); MONOCYTES % 11.2 % (0.0-11.0); NEUTROPHIL # 2.5 10^3/ul (1.6-7.5); PLATELET COUNT 232 10^3/UL (140-415); RED BLOOD COUNT 3.49 10^6/ul (4.20-5.40); RED CELL DISTRIBUTION WIDTH 13.2 % (11.5-14.5)
[2018-09-16 06:15] LABS: WHITE BLOOD COUNT 4.1 10^3/ul (4.8-10.8)
[2018-09-16 06:58] LABS: ANION GAP 9 (5-13); BLOOD UREA NITROGEN 10 mg/dl (7-20); CALCIUM 8.4 mg/dl (8.4-10.2); CARBON DIOXIDE 26 mmol/L (21-31); CHLORIDE 106 mmol/L (97-110); CREATININE 0.53 mg/dl (0.44-1.00); GLUCOSE 97 mg/dl (70-220); PHOSPHORUS 2.8 mg/dl (2.5-4.9); POTASSIUM 3.6 mmol/L (3.5-5.1); SODIUM 141 mmol/L (135-144)
[2018-09-16] MEDS: INSULIN ASPART [NOVOLOG] 3 ML PEN SC ×7 (08:00→21:00)
[2018-09-16] MEDS: QUETIAPINE 25 MG TAB PO ×2 (09:02→20:27)
[2018-09-16 12:40] LABS: ADD UMIC YES; UR ASCORBIC ACID NEGATIVE (NEGATIVE); UR BACTERIA FEW /HPF (NONE SEEN); UR BILIRUBIN (Dip) NEGATIVE (NEGATIVE); UR BLOOD (Dip) NEGATIVE (NEGATIVE); UR CLARITY CLEAR (CLEAR); UR COLOR YELLOW (YELLOW); UR GLUCOSE (Dip) 3+ mg/dL (NEGATIVE); UR KETONES (Dip) 1+ mg/dL (NEGATIVE); UR LEUKOCYTE ESTERASE (Dip) 1+ Leu/ul (NEGATIVE); UR NITRITE (Dip) NEGATIVE (NEGATIVE); UR RBC 4 /HPF (0-5); UR SPECIFIC GRAVITY (Dip) 1.015 (1.003-1.030); UR TOTAL PROTEIN (Dip) NEGATIVE (NEGATIVE); UR UROBILINOGEN (Dip) NEGATIVE (NEGATIVE); UR WBC 8 /HPF (0-5)
[2018-09-16] MEDS: SUCRALFATE (100 MG/ML) 10ML CUP PO ×3 (13:28→20:27)
[2018-09-16] MEDS: PANTOPRAZOLE (EC) 40 MG TAB PO (17:42)
[2018-09-16] MEDS: POTASSIUM CHLORIDE 30 MEQ in SOD CHLORIDE 0.9% 1,000 ML IV (17:50)
[2018-09-16] MEDS: LORAZEPAM 2 MG INJ IV (19:20)
[2018-09-16 19:54] LABS: AMMONIA 14 umol/l (9-30)
[2018-09-16] MEDS: INSULIN GLARGINE [LANTus] (100 UNITS/ML) SYG SC (20:37)
[2018-09-16] MEDS: HYDROCODONE/APAP (5/325) TAB PO (23:54)
[2018-09-17] MEDS: ACCU-CHEK XX (02:00)
[2018-09-17] MEDS: morphine LIQ (10 MG/5 ML) CUP PO (03:05)
[2018-09-17] MEDS: ZOLPIDEM 5 MG TAB PO (03:05)
[2018-09-17 04:00] LABS: ADD UMIC YES; UR ASCORBIC ACID NEGATIVE (NEGATIVE); UR BILIRUBIN (Dip) NEGATIVE (NEGATIVE); UR BLOOD (Dip) 1+ mg/dL (NEGATIVE); UR CLARITY CLEAR (CLEAR); UR COLOR COLORLESS (YELLOW); UR GLUCOSE (Dip) 3+ mg/dL (NEGATIVE); UR KETONES (Dip) TRACE mg/dL (NEGATIVE); UR LEUKOCYTE ESTERASE (Dip) NEGATIVE Leu/ul (NEGATIVE); UR NITRITE (Dip) NEGATIVE (NEGATIVE); UR RBC 3 /HPF (0-5); UR SPECIFIC GRAVITY (Dip) 1.002 (1.003-1.030); UR TOTAL PROTEIN (Dip) NEGATIVE (NEGATIVE); UR UROBILINOGEN (Dip) NEGATIVE (NEGATIVE); UR WBC 1 /HPF (0-5)
[2018-09-17] MEDS: LORAZEPAM 2 MG INJ IV (04:08)
[2018-09-17] MEDS: HALOPERIDOL 5 MG INJ IM (04:08)
[2018-09-17 05:32] LABS: ADD MAN DIFF? NO
[2018-09-17 05:34] LABS: WHITE BLOOD COUNT 4.4 10^3/ul (4.8-10.8)
[2018-09-17 05:34] LABS: ABNORMAL IP MESSAGE 1; BASOPHILS % 0.2 % (0.0-2.0); EOSINOPHILS # 0.2 10^3/ul (0.0-0.5); EOSINOPHILS % 4.3 % (0.0-7.0); HEMATOCRIT 29.7 % (37.0-47.0); HEMOGLOBIN 10.1 g/dl (12.0-16.0); LYMPHOCYTES # 0.5 10^3/ul (0.8-2.9); LYMPHOCYTES % 12.2 % (15.0-51.0); MEAN CORPUSCULAR HEMOGLOBIN 31.5 pg (29.0-33.0); MEAN CORPUSCULAR VOLUME 92.5 fl (82.0-101.0); MEAN PLATELET VOLUME 10.1 fl (7.4-10.4); MONOCYTE # 0.5 10^3/ul (0.3-0.9); MONOCYTES % 10.4 % (0.0-11.0); NEUTROPHIL # 3.2 10^3/ul (1.6-7.5); NEUTROPHILS % 72.7 % (39.0-77.0); PLATELET COUNT 233 10^3/UL (140-415); RED BLOOD COUNT 3.21 10^6/ul (4.20-5.40)
[2018-09-17] MEDS: PANTOPRAZOLE (EC) 40 MG TAB PO ×2 (05:42→17:19)
[2018-09-17 05:46] LABS: POSITIVE DIFF @See below
[2018-09-17 06:22] LABS: ALANINE AMINOTRANSFERASE 315 IU/L (13-69); ALBUMIN 3.1 g/dl (3.3-4.9); ALKALINE PHOSPHATASE 88 IU/L (42-121); ASPARTATE AMINO TRANSFERASE 106 IU/L (15-46); BILIRUBIN,INDIRECT 0.2 mg/dl (0-1.1); BILIRUBIN,TOTAL 0.2 mg/dl (0.2-1.3); TOTAL PROTEIN 5.5 g/dl (6.1-8.1)
[2018-09-17 06:24] LABS: ANION GAP 8 (5-13); BLOOD UREA NITROGEN 5 mg/dl (7-20); CALCIUM 8.4 mg/dl (8.4-10.2); CARBON DIOXIDE 26 mmol/L (21-31); CHLORIDE 104 mmol/L (97-110); CREATININE 0.51 mg/dl (0.44-1.00); GLUCOSE 199 mg/dl (70-220); POTASSIUM 3.5 mmol/L (3.5-5.1); SODIUM 138 mmol/L (135-144)
[2018-09-17 07:04] LABS: HAAIG REFLEX REFLEX FILED
[2018-09-17] MEDS: INSULIN ASPART [NOVOLOG] 3 ML PEN SC ×7 (08:00→20:39)
[2018-09-17] MEDS: DOCUSATE SODIUM 100 MG CAP PO ×2 (08:50→20:38)
[2018-09-17] MEDS: QUETIAPINE 25 MG TAB PO ×2 (08:50→20:38)
[2018-09-17] MEDS: SUCRALFATE (100 MG/ML) 10ML CUP PO ×4 (08:50→20:38)
[2018-09-17 11:38] LABS: HEPATITIS B SURFACE ANTIGEN NEGATIVE (NEGATIVE)
[2018-09-17 11:54] LABS: HEPATITIS B CORE ANTIBODY NEGATIVE (NEGATIVE); HEPATITIS C VIRAL ANTIBODY NEGATIVE (NEGATIVE)
[2018-09-17] MEDS: POTASSIUM CHLORIDE 30 MEQ in SOD CHLORIDE 0.9% 1,000 ML IV (12:40)
[2018-09-17 13:41] LABS: AMMONIA 16 umol/l (9-30)
[2018-09-17 18:17] LABS: AMPHETAMINE/METHAMPHETAMINE Negative (NEGATIVE); BARBITURATES Negative (NEGATIVE); BENZODIAZEPINES Negative (NEGATIVE); CANNABINOIDS Negative (NEGATIVE); COCAINE Negative (NEGATIVE); OPIATES Positive (NEGATIVE)
[2018-09-17] MEDS: INSULIN GLARGINE [LANTus] (100 UNITS/ML) SYG SC (20:42)
[2018-09-17] MEDS: NACL 0.9% 3 ML SYG IV (21:41)
[2018-09-18] MEDS: ACCU-CHEK XX (02:00)
[2018-09-18] MEDS: LORAZEPAM 2 MG INJ IV (02:50)
[2018-09-18] MEDS: HALOPERIDOL 5 MG INJ IM (02:53)
[2018-09-18 05:48] LABS: ADD MAN DIFF? NO
[2018-09-18 05:51] LABS: BASOPHILS % 0.3 % (0.0-2.0); EOSINOPHILS # 0.2 10^3/ul (0.0-0.5); EOSINOPHILS % 3.5 % (0.0-7.0); HEMATOCRIT 32.6 % (37.0-47.0); HEMOGLOBIN 10.9 g/dl (12.0-16.0); LYMPHOCYTES # 0.8 10^3/ul (0.8-2.9); MEAN CORPUSCULAR HEMOGLOBIN 30.7 pg (29.0-33.0); MEAN CORPUSCULAR HGB CONC 33.4 g/dl (32.0-37.0); MEAN CORPUSCULAR VOLUME 91.8 fl (82.0-101.0); MEAN PLATELET VOLUME 9.4 fl (7.4-10.4); MONOCYTE # 0.7 10^3/ul (0.3-0.9); NEUTROPHIL # 4.3 10^3/ul (1.6-7.5); NEUTROPHILS % 71.9 % (39.0-77.0); PLATELET COUNT 263 10^3/UL (140-415); RED BLOOD COUNT 3.55 10^6/ul (4.20-5.40); RED CELL DISTRIBUTION WIDTH 12.9 % (11.5-14.5)
[2018-09-18 05:51] LABS: WHITE BLOOD COUNT 5.9 10^3/ul (4.8-10.8)
[2018-09-18] MEDS: PANTOPRAZOLE (EC) 40 MG TAB PO ×2 (05:52→17:56)
[2018-09-18 07:04] LABS: ANION GAP 8 (5-13); BLOOD UREA NITROGEN 4 mg/dl (7-20); CALCIUM 9.2 mg/dl (8.4-10.2); CARBON DIOXIDE 29 mmol/L (21-31); CHLORIDE 101 mmol/L (97-110); CREATININE 0.52 mg/dl (0.44-1.00); GLUCOSE 120 mg/dl (70-220); SODIUM 138 mmol/L (135-144)
[2018-09-18] MEDS: POTASSIUM CHLORIDE 30 MEQ in SOD CHLORIDE 0.9% 1,000 ML IV (07:42)
[2018-09-18] MEDS: hydrALAzine 20 MG INJ IV (07:43)
[2018-09-18] MEDS: INSULIN ASPART [NOVOLOG] 3 ML PEN SC ×7 (08:00→20:49)
[2018-09-18] MEDS: DOCUSATE SODIUM 100 MG CAP PO ×3 (08:33→20:50)
[2018-09-18] MEDS: QUETIAPINE 25 MG TAB PO (08:33)
[2018-09-18] MEDS: SUCRALFATE (100 MG/ML) 10ML CUP PO ×4 (08:33→20:50)
[2018-09-18 10:54] LABS: ALANINE AMINOTRANSFERASE 237 IU/L (13-69); ALBUMIN 3.5 g/dl (3.3-4.9); ALKALINE PHOSPHATASE 68 IU/L (42-121); ASPARTATE AMINO TRANSFERASE 63 IU/L (15-46); BILIRUBIN,INDIRECT 0.4 mg/dl (0-1.1); BILIRUBIN,TOTAL 0.4 mg/dl (0.2-1.3)
[2018-09-18] MEDS ORDERED: LIDOCAINE 2% (SDV) 5 ML INJ (16:25)
[2018-09-18] MEDS ORDERED: PROPOFOL 40 ML (16:25)
[2018-09-18] MEDS: OLANZAPINE 5 MG TAB PO (20:50)
[2018-09-18] MEDS: HEPARIN 5,000 UNIT/1 ML VIAL SC (20:52)
[2018-09-18] MEDS: INSULIN GLARGINE [LANTus] (100 UNITS/ML) SYG SC (20:53)
[2018-09-19] MEDS: morphine LIQ (10 MG/5 ML) CUP PO ×2 (00:15→11:26)
[2018-09-19] MEDS: ACCU-CHEK XX (01:47)
[2018-09-19] MEDS: hydrALAzine 20 MG INJ IV (01:47)
[2018-09-19] MEDS: PANTOPRAZOLE (EC) 40 MG TAB PO ×2 (06:48→17:43)
[2018-09-19] MEDS: DOCUSATE SODIUM 100 MG CAP PO ×2 (09:04→21:00)
[2018-09-19] MEDS: SUCRALFATE (100 MG/ML) 10ML CUP PO ×4 (09:04→21:00)
[2018-09-19] MEDS: INSULIN ASPART [NOVOLOG] 3 ML PEN SC ×7 (09:05→20:31)
[2018-09-19] MEDS: HEPARIN 5,000 UNIT/1 ML VIAL SC ×2 (09:06→20:48)
[2018-09-19] MEDS: POTASSIUM CHLORIDE 30 MEQ in SOD CHLORIDE 0.9% 1,000 ML IV ×2 (09:16)
[2018-09-19] MEDS: INSULIN GLARGINE [LANTus] (100 UNITS/ML) SYG SC (20:29)
[2018-09-19] MEDS: OLANZAPINE 5 MG TAB PO (21:00)
[2018-09-19] MEDS ORDERED: AMLODIPINE 5 MG TAB PO (21:30)
== END 2018-09-19 22:30 | DRG 378 ==
LOC: 2NE 09-16 20:10 → E/R 11:08 → 2NE 13:25
PROC: 0DJ08ZZ Inspection of Upper Intestinal Tract, Via Natural or Artificial Opening Endoscopic (ICD-10-PCS; principal; 2018-09-18 16:00)
DX: K29.71 Gastritis, unspecified, with bleeding (principal); E87.1 Hypo-osmolality and hyponatremia; G93.40 Encephalopathy, unspecified; S32.011D Stable burst fracture of first lumbar vertebra, subsequent encounter for fracture with routine healing; K92.1 Melena; K92.0 Hematemesis; E11.65 Type 2 diabetes mellitus with hyperglycemia; I10 Essential (primary) hypertension; E87.5 Hyperkalemia; D72.829 Elevated white blood cell count, unspecified; W19.XXXA Unspecified fall, initial encounter; Z91.81 History of falling; F03.90 Unspecified dementia, unspecified severity, without behavioral disturbance, psychotic disturbance, mood disturbance, and anxiety; M48.061 Spinal stenosis, lumbar region without neurogenic claudication; R79.89 Other specified abnormal findings of blood chemistry; R41.0 Disorientation, unspecified
CPT/HCPCS: 36415; 70450; 70551; 71045; 72131; 76705; 80048; 80076; 80307; 81001; 82140; 82607; 82962; 83735; 84100; 85025; 86592; 86704; 86709; 86803; 87040; 87086; 87340; 90686; 93005; 96374; 96375; 97110; 97116; 97161; 97530; 99285-25